=== PATIENT | male | born 1955 | race Caucasian/White ===

== ENCOUNTER 2021-03-08 15:25 | Outpatient (CLI) | payer OTHER, MEDICARE ==
[~2021-03-08 15:25] MED LIST: ASPI81TA52 PO; GLIM4TAB7 PO; METF500T PO; NITR0.4T51 SL; SIMV-42 PO; SOTA80TA73 PO
== END 2021-03-08 23:59 | disposition home or self-care (01) ==
LOC: VAS 15:25
DX: M79.89 Other specified soft tissue disorders (principal)
CPT/HCPCS: 93971

== ENCOUNTER 2022-07-15 20:23 | Emergency (ER) | payer OTHER, MEDICARE ==
[~2022-07-15] VITALS: Ht 190.5 cm; Wt 95.0 kg
[2022-07-15] MEDS ORDERED: LIDOcaine 2% 10ml TOPICAL JELLY (Urojet) TP ONE (20:40)
[2022-07-15] MEDS ORDERED: FLO0.4C PO (21:28)
[2022-07-15 21:30] LABS: CLARITY,URINE CLEAR (Clear); COLOR,URINE YELLOW (Yellow); GLUCOSE, URINE >=1000 mg/dl (Neg); KETONES,URINE NEGATIVE (Neg); LEUKOCYTE ESTERASE ,URINE NEGATIVE (Neg); NITRITES, URINE NEGATIVE (Neg); OCCULT BLOOD,URINE LARGE (Neg); PH,URINE 5.5 (4.8-8.0); PROTEIN,URINE NEGATIVE (Neg); UROBILINOGEN,URINE 0.2 E.U/dL (0.2-1.0)
[2022-07-15] MEDS ORDERED: tamsulosin 0.4mg capsule PO ONE (21:30)
[2022-07-15 21:31] LABS: UA COLLECTION TYPE NON-SPECIFIED
[2022-07-15 21:38] LABS: BACTERIA,URINE NONE SEEN /HPF (Neg); MUCUS STRANDS NONE SEEN /LPF (Neg); SQUAMOUS EPITHELIAL CELL,UR NONE SEEN /LPF (FEW); TRANSITIONAL EPI CELLS,URINE FEW /HPF; WBC,URINE NONE SEEN /HPF (0-4)
[2022-07-15 22:05] VITALS: BP 125/64
== END 2022-07-15 22:14 | disposition home or self-care (01) ==
LOC: ER 20:24
DX: R33.9 Retention of urine, unspecified (principal); R39.11 Hesitancy of micturition; I10 Essential (primary) hypertension; E78.00 Pure hypercholesterolemia, unspecified; E11.9 Type 2 diabetes mellitus without complications
CPT/HCPCS: 51702; 81001; 99284; A4340; A4358